=== PATIENT | male | born 1965 | race African-American/Black ===

== ENCOUNTER 2018-03-12 14:57 | Emergency (ER) | payer OTHER ==
[~2018-03-12] VITALS: Ht 180.3 cm; Wt 95.3 kg
[2018-03-12] MEDS ORDERED: HTN MED (15:03)
[2018-03-12] MEDS ORDERED: IBUPROFEN 800800 M1 PO (16:01)
[2018-03-12 16:31] VITALS: BP 150/84
== END 2018-03-12 16:32 | disposition home or self-care (01) ==
LOC: M.ERS 14:57
DX: S89.81XA Other specified injuries of right lower leg, initial encounter (principal); X58.XXXA Exposure to other specified factors, initial encounter; Y93.89 Activity, other specified; Y92.89 Other specified places as the place of occurrence of the external cause; Y99.8 Other external cause status; Z88.8 Allergy status to other drugs, medicaments and biological substances